=== PATIENT | female | born 1960 | race Caucasian/White ===

== ENCOUNTER 2020-01-03 07:52 | Outpatient (RCR) | payer OTHER, SELFPAY ==
[2020-01-03 08:04] VITALS: BMI 28.5
== END 2020-04-02 23:59 | disposition home or self-care (01) ==
LOC: ANHDMC 07:52
PROVIDERS: Visit Provider Physician Assistant
DX: E11.65 Type 2 diabetes mellitus with hyperglycemia (principal); Z71.3 Dietary counseling and surveillance; Z71.89 Other specified counseling
CPT/HCPCS: 97802; G0108

== ENCOUNTER → 2020-02-15 15:44 | Outpatient (CLI) | payer OTHER, SELFPAY ==
--- NOTE | ~2020-02-15 | MM_ITS ---
EXAMINATION: MM screening thelma BI w katia HISTORY: Screening mammogram TECHNIQUE: Craniocaudal and mediolateral oblique 3-D tomosynthesis images were obtained and synthetic 2-D images were generated. CAD analysis was submitted and interpreted. COMPARISON: 01/01/2016, 12/27/2014 and 12/20/2013 bilateral digital screening mammogram examinations BREAST PARENCHYMAL COMPOSITION: The breasts are heterogeneously dense, which may obscure small masses . FINDINGS: There are several circumscribed low-density 5 mm or smaller masses in the outer left breast (craniocaudal Tomosynthesis image 17/64, MLO Tomosynthesis image 21/68), likely benign intramammary lymph nodes There is no evidence of suspicious mass, calcification, or architectural distortion to mohr ggest malignancy in either breast. There has been no suspicious interval change. IMPRESSION: 1. No mammographic evidence of malignancy. 2. Recommend routine screening mammography in one year. BI-RADS Category 2: Benign finding(s). Reviewed, dictated and finalized at location A.
== END ==
PROVIDERS: PCP Physician Assistant; Visit Provider Obstetrics & Gynecology
DX: Z12.31 Encounter for screening mammogram for malignant neoplasm of breast (principal)
CPT/HCPCS: 77063; 77067

== ENCOUNTER 2024-10-03 16:17 | Outpatient (CLI) | payer OTHER, SELFPAY ==
--- NOTE | ~2024-10-03 | XR_ITS ---
EXAM: XR hand RT min 3V DATE: 10/03/2024 16:26 HISTORY: R FINGER PAIN . COMPARISON: None available. FINDINGS: Decreased mineralization. No fracture or dislocation. No lytic or blastic lesion. Scattere d degenerative changes, typical of osteoarthritis. More pronounced and erosive changes present at the right fourth PIP joint. No erosion or periosteal change. Soft tissue swelling about the right fourth PIP joint. 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 Also consider septic arthritis if there is any history of penetrating trauma. Reviewed, dictated and finalized at location K. MARKETING ASSISTANT IMPRESSION: Polyarticular osteoarthritis, likely with changes of erosive osteoa rthritis in the right first PIP joint. Also consider septic arthritis if there is any history of penetrating trauma.
== END 2024-10-03 16:18 | disposition home or self-care (01) ==
LOC: MICIMG 16:18
PROVIDERS: PCP Physician Assistant; Visit Provider Physician Assistant
DX: M19.041 Primary osteoarthritis, right hand (principal)
CPT/HCPCS: 73130

== ENCOUNTER 2024-10-26 09:06 | Outpatient (CLI) | payer OTHER, SELFPAY ==
--- NOTE | ~2024-10-26 | MMUS_ITS ---
EXAMINATION: US breast BI complete, MM diagnostic thelma BI w katia HISTORY: Palpable right breast abnormality TECHNIQUE: Additional 3-D tomosynthesis images of the breasts were performed and synthetic 2-D images were generated. CAD analysis was submitted and interpreted. High resolution bilateral complete breas t ultrasound was performed. COMPARISON: Comparison to multiple prior studies sequentially, with oldest reviewed study dated 12/27. BREAST PARENCHYMAL COMPOSITION: Dense: The breasts are heterogeneously dense, which may obscure small masses FINDINGS: MAMMOGRAPHIC FINDINGS: The breasts are stable. No new masses, calcifications or architectural distortion in either breast to suggest malignancy. ULTRASOUND: Complete US of all 4 quadrants of the breast/s and retroareolar region was reviewed. In the right massimo ast at 1:00, 2 cm from the nipple there is a 5 mm cyst. No suspicious masses or fluid collections in either breast to suggest malignancy. IMPRESSION: 1. No evidence for malignancy in either breast. 2. Routine yearly screening mammogram and regular clinical breast examination are recommended. BI-RADS Category 1: Negative Reviewed, dictated and finalized at location B. WHEELER IMPRESSION: 1. No evidence for malignancy in either breast. 2. Routine yearly screening mammogram and regular clinical breast examination a re recommended. BI-RADS Category 1: Negative
== END 2024-10-26 09:07 | disposition home or self-care (01) ==
LOC: MICIMG 09:07
PROVIDERS: PCP Physician Assistant; Visit Provider Physician Assistant
DX: N63.12 Unspecified lump in the right breast, upper inner quadrant (principal)
CPT/HCPCS: 76641; 77062; 77066; G0279